=== PATIENT | male | born 1980 | race American Indian/Alaskan Native ===

== ENCOUNTER 2019-05-08 23:26 | Emergency (ER) | payer SELFPAY ==
--- NOTE | 2019-05-09 00:48 | XRay Report ---
LEFT FOOT 2 VIEW(S) INDICATION / CLINICAL INFORMATION: injury, 1st digit pain big toe hurts. COMPARISON: None available. FINDINGS: BONES / JOINT(S): Irregularity of proximal phalanx of left great toe could represent nondisplaced fra cture. No significant arthritis. Moderate soft tissue swelling of the great toe and dorsum of the for efoot. SOFT TISSUES: No significant abnormality. ADDITIONAL FINDINGS: None. Signer Name: Alexys Poole MD Signed: 05/09/2019 12:44 AM Workstation Name: [email or web address]
--- NOTE | 2019-05-09 01:01 | Emergency Department Report ---
Blank Doc - Documentation Documentation: : Please see the encounter [id number] for the remainder of the chart. Patient was registered incorrectly and these 2 charts will be merged
[2019-05-09 01:56] VITALS: BP 154/92
== END 2019-05-09 01:56 ==
LOC: ED 23:26
DX: R41.82 Altered mental status, unspecified (principal); Z53.21 Procedure and treatment not carried out due to patient leaving prior to being seen by health care provider